=== PATIENT | female | born 1955 | race Caucasian/White ===

== ENCOUNTER → 2021-10-15 | Outpatient (CLI) | payer OTHER ==
[2014-05-23 14:28] VITALS: BP 118/65
[~2021-10-15] MED LIST: Aspirin PO; LEVO1CAP3 PO; LOSA1TAB22 PO; TOLT4CAP PO; VIT1TABL32 PO
--- NOTE | 2021-10-15 11:24 | KCIC ---
Coronary calcium score CT chest without contrast History: Hypertension. Hyperlipidemia. Coronary calcium screening. Technique: With retrospective electrocardiogram gating 3 mm thick axial reconstructed noncontrast omid ges of the chest at the level of the coronary arteries was performed. Images were post processed on a workstation and calcium score calculated using the modified [place] protocol. PQRS statement: CT scans at this facility use dose reduction including either automated exposure cont rol, iterative reconstructions, and /or weight based radiation dosing via mA and kV modification when appropriate to reduce radiation dose to as low as reasonably achievable. Findings: Total coronary calcium score is 0. This is based on the calcium score of 0 of the left ma in coronary artery, score of 0 of the left anterior descending artery, score of 0 of the left circumf anish artery and score of 0 of the right coronary artery. Noncoronary findings demonstrate a hiatal hernia containing upper stomach gastric fundus and cardia. Thin linear discoid atelectasis at the lung bases. IMPRESSION: 1. The patient's coronary calcium score is 0. This is consistent with no identifiable coronary athero sclerotic plaque. Findings consistent with a low risk of cardiovascular event. 2. Hiatal hernia of the upper stomach. Electronically signed by: Torres Agrawal MD (10/15/2021 11:22 AM) [facility]
== END ==
LOC: KCIC CT 08:13
PROVIDERS: ATTEND Physician Assistant Medical
DX: I10 Essential (primary) hypertension (principal); E78.5 Hyperlipidemia, unspecified; K44.9 Diaphragmatic hernia without obstruction or gangrene
CPT/HCPCS: 75571